=== PATIENT | female | born 1965 | race African-American/Black ===

== ENCOUNTER 2019-04-21 11:33 | Emergency (ER) | payer MEDICAID ==
[2019-04-21] MEDS ORDERED: LIDOCAINE HCL/EPINEPHRINE 1%-EPI 1:100,000 30 ML VIAL INFIL ONE ×2 (13:15→13:30)
[2019-04-21] MEDS ORDERED: LIDOCAINE HCL 1% 20ML VIAL (Pyxis) INJ INFIL ONE (13:30)
[2019-04-21 14:00] VITALS: BP 128/84
[2019-04-21] MEDS ORDERED: IBUPROFEN 600MG TABLET PO STA (16:13)
[2019-04-21] MEDS ORDERED: TETANUS, DIPHTHERIA, PERTUSSIS VAC/PF 0.5ML (>7YR OLD) IM ONE (16:15)
== END 2019-04-21 16:41 | disposition home or self-care (01) ==
LOC: ER 11:33
DX: S01.511A Laceration without foreign body of lip, initial encounter (principal); S00.83XA Contusion of other part of head, initial encounter; Y04.2XXA Assault by strike against or bumped into by another person, initial encounter; Y93.89 Activity, other specified; Y92.89 Other specified places as the place of occurrence of the external cause; Y07.03 Male partner, perpetrator of maltreatment and neglect; G40.909 Epilepsy, unspecified, not intractable, without status epilepticus
CPT/HCPCS: 40650; 70450; 99284; A4217; J3490; Z7610

== ENCOUNTER 2019-04-24 14:45 | Emergency (ER) | payer MEDICAID | END 2019-04-24 15:56 | disposition left against medical advice (07) | LOC: ER 14:45 | DX: Z53.21 Procedure and treatment not carried out due to patient leaving prior to being seen by health care provider (principal) ==